=== PATIENT | female | born 1930 | race Caucasian/White ===

== ENCOUNTER 2016-10-27 12:10 | Inpatient (IN) ==
[2016-10-27] MEDS ORDERED: ZOFRAN IV ONE (12:40)
[2016-10-27] MEDS ORDERED: MORPHINE IV ONE (12:40)
[2016-10-27 12:57] LABS: MANUAL DIFF NEEDED? NO
[2016-10-27 13:04] LABS: BASO% 0.3 % (0.0-0.8); EOS% 0.7 % (0.0-10.0); HEMATOCRIT 35.1 % (37.0-47.0); HEMOGLOBIN 11.3 g/dL (12.0-16.0); IMM GRAN# 0.04 X1000 (0.0-0.04); IMM GRAN% 0.3 % (0.0-0.5); LYMPH# 1.79 X1000 (1.2-3.4); LYMPH% 12.5 % (20.5-51.1); MCH 28.7 PG (27-31); MCHC 32.2 g/dL (33-37); MCV 89.1 FL (81-99); MONO% 6.3 % (1.7-9.3); MPV 9.2 FL (7.4-10.4); NEUT% 79.9 % (42.2-75.2); PLT 290 X1000 (130-400); RBC 3.94 XMIL (4.2-5.4)
[2016-10-27 13:16] LABS: INR 1.05; PROTIME 11.1 Seconds (9.2-11.7)
[2016-10-27 13:17] LABS: AGAP 11; ALBUMIN 4.1 g/dL (3.5-5.0); ALKALINE PHOSPHATASE 65 U/L (32-104); BUN 10 mg/dL (8-22); CHLORIDE 96 mmol/L (98-107); COSMO 266; GOT 13 U/L (10-30); GPT 6 U/L (10-36); SODIUM 133 mmol/L (136-145); TCO2 26 mmol/L (25-35); TOTAL BILIRUBIN 0.38 mg/dL (0.20-1.00); TOTAL PROTEIN 6.9 g/dL (6.3-8.3)
[2016-10-27] MEDS: NS 1,000 ML IV SCH ×2 (13:20→21:51)
[2016-10-27] MEDS ORDERED: DIPHTHERIA/TETANUS ADULT IM ONE (13:33)
[2016-10-27] MEDS ORDERED: KEFZOL 1 GM/D5W 1 GM/50 ML IVPB IV ONE (13:33)
--- NOTE | 2016-10-27 14:19 | Diag Imaging Result Doc PS360 ---
EXAM: LOWER LEG-RIGHT INDICATION: poss open fx TECHNIQUE: 4 views COMPARISON: None. FINDINGS: There has been a prior right knee arthroplasty. The arthroplasty hardware is in the expected position. There are acute fractures involving the distal tibia and fibula. Please see separate right ankle radiograph report for further details, which was performed at the same time. No other discrete fracture is appreciated. There is soft tissue edema surrounding the ankle. IMPRESSION: Fractures of the distal tibia and fibula. Please see separate ankle radiograph report for full details. Electronically signed by Christiano Gonzales 10/27/2016 2:17 PM
--- NOTE | 2016-10-27 14:33 | Diag Imaging Result Doc PS360 ---
EXAM: ANKLE COMPLETE RIGHT INDICATION: pre-op TECHNIQUE: 3 views COMPARISON: None. FINDINGS: There is a fracture involving the distal shaft of the fibula with significant anterior and medial apex angulation. There is also a fracture of the lateral corner of the distal tibia. There is significant widening of the ankle mortise medially indicating ligamentous disruption. There is extensive soft tissue edema around the ankle. IMPRESSION: Fractures of the distal tibia and fibula as described with significant widening of the ankle mortise medially suggesting ligamentous injury. Electronically signed by Christiano Gonzales 10/27/2016 2:31 PM
[2016-10-27] MEDS ORDERED: TYLENOL PO PRN (14:47)
[2016-10-27] MEDS ORDERED: MORPHINE IV PRN ×2 (14:47→14:57)
[2016-10-27] MEDS ORDERED: NS 1,000 ML IV SCH (14:47)
[2016-10-27] MEDS ORDERED: ZOFRAN IV PRN ×2 (14:47→19:30)
--- NOTE | 2016-10-27 14:51 | Diag Imaging Result Doc PS360 ---
EXAM: CHEST-2 VIEWS INDICATION: FALL TECHNIQUE: 2 views COMPARISON: No prior chest radiograph is available for comparison. FINDINGS: Inspiration is suboptimal. There is a calcified granuloma at the right lung base. The lungs are grossly clear, otherwise. There is no discrete pleural fluid collection or pneumothorax. The cardiomediastinal silhouette and central vasculature are grossly unremarkable. There is multilevel thoracic spine spondylosis. IMPRESSION: No evidence of acute pathology by plain radiograph. Electronically signed by Christiano Gonzales 10/27/2016 2:48 PM
[2016-10-27] MEDS ORDERED: HUMALOG SUBQ ONE (14:52)
[2016-10-27] MEDS ORDERED: KEFZOL 1 GM/D5W 1 GM/50 ML IVPB ONE (15:56)
[2016-10-27] MEDS ORDERED: DIPRIVAN 1% ONE (18:34)
[2016-10-27] MEDS ORDERED: FENTANYL ONE (18:35)
--- NOTE | 2016-10-27 18:58 | OPERATIVE NOTE ---
PROCEDURE DATE: 10/27/2016 PREOPERATIVE DIAGNOSES: 1. Right grade 3A open ankle fracture dislocation. 2. Right lateral malleolus fracture. 3. Right deltoid tear. POSTOPERATIVE DIAGNOSES: 1. Right grade 3A open ankle fracture dislocation. 2. Right lateral malleolus fracture. 3. Right deltoid tear. PROCEDURES: 1. Right irrigation and debridement of the ankle. 2. Right distal fibula open reduction internal fixation. 3. Right deltoid repair. 4. Right debridement articular cartilage. SURGEON: Dr. Juve Smith. [employer]ES: [employer]. ANESTHESIA: General with LMA. TOURNIQUET TIME: Was around 90 minutes. IMPLANTS: Synthes 1/3 tubular plate and screws and [employer] Juggernauts. DISPOSITION: To PACU, hemodynamically stable. INDICATION FOR PROCEDURE: Ms. Marian Arevalo, an 86-year-old female, who was mopping her kitchen around 11 a.m. this morning. Unfortunately suffered a fall and sustained an open ankle fracture. She was brought to the emergency department. Ancef was given in the emergency department. She was then taken up to the OR Holding. When I examined her there she had open ankle fracture. I discussed with her and her family about irrigation, debridement and open reduction internal fixation. I went over with them the procedure, risks, benefits, potential complications. Risks include, but are not limited to, infection, wound healing problems, damage to nerves, arteries, veins, numbness, malunion, nonunion, hardware related issues, continued pain, DVT and anesthesia related risks. After discussing these with the patient, she expressed understanding and wished to proceed. DESCRIPTION OF PROCEDURE: Ms. Arevalo was identified in the preop holding area. Right ankle was marked as the correct surgical site. She was then wheeled to the operating room, kept supine on her own bed. She was induced under general anesthesia. LMA was placed. Tourniquet was placed to the right thigh. She was then moved to the OR table, all bony prominences well padded. Right lower extremity then prepped with Betadine, Betadine solution and draped in normal sterile fashion. Surgical pause was performed. We identified the correct patient, the correct side, and the correct procedure. Preop antibiotics were given which was another g of IV Ancef. She had already had 1 g in the ER and started with debridement. I did not see any foreign bodies in the ankle at all. You could see the entire tibial plafond and you could see the talar dome as well. She did scuff up a good portion of the talar dome and I debrided some of the loose cartilage that was there. She did have a small fracture off the posterior aspect of the tibia that seemed to be pretty small. I then irrigated everything copiously with normal saline until everything looked very nice and clean. I did not see any debris at all in the joint or through the wound. I then reduced the ankle and we went lateral. Made a longitudinal incision over the distal fibula. Dissection was carried down to the fracture site. Easily identified the fracture site. Irrigated it very well with normal saline. Also I then used a bony reduction clamp. Got my reduction. Put a lag screw in, 3.5 and then used a 1/3 tubular plate and screws, 3 screws distally and 3 screws proximally and had a good length and good stability there. I then came back medially. I put two juggernauts in the medial malleolus. It looked like she had avulsed off the deltoid right off of the medial malleolus. The PT tendon was inspected which showed it was intact. I then repaired the deltoid back to the medial malleolus with those 2 suture anchors and had very good fixation there. I then used a lot of 0 Vicryl and repaired a lot of the tissue and the capsule around that area, coming a little bit anteriorly at the anterior capsule and then also some to the periosteum as it had been ripped up to the deltoid. So felt I had a really good repair medially. After we did our deltoid repair I then got x-rays and everything looked well reduced, even that posterior malleolar piece and then I did external rotation stress test and she did not open up the medial clear screws or the tib/fib space. At this point, we then closed the lateral incision with 0 Vicryl for the deep layer over the plate, 2-0 Vicryl for the subcutaneous and nylon on the skin. The traumatic laceration I did close with a few 2-0 Vicryl to pull the skin together and then nylon. She also had 2 other lacerations a little more superior on the leg, 1 straight medial and 1 more anteriorly. I irrigated those out copiously with normal saline and then closed those with nylon. As everything was closed well tourniquet was let down at 90 minutes. The patient good cap refill return to the toes. Adaptic 4x4s, ABD, soft roll and posterior splint was applied. The patient was then moved to her own bed and taken to the PACU in stable condition. Postoperatively, patient will be nonweightbearing right lower extremity. She will be admitted to the hospital. She received IV antibiotics and then I will see her in the morning. cc: MD Marty Hurtado MD
--- NOTE | 2016-10-27 19:14 | HISTORY AND PHYSICAL ---
PRIMARY CARE PHYSICIAN: Marty Rene MD. CHIEF COMPLAINT: Right ankle pain. HISTORY OF PRESENT ILLNESS: This is an 86-year-old, white female with past medical history significant for anemia, atrial fibrillation, constipation, type 2 diabetes, reflux disease, hypertension, hyperlipidemia, mild cognitive impairment, osteoarthritis, osteopenia, psoriasis, and vitamin B12 deficiency presents for evaluation of above-mentioned symptoms. Current history of present illness began in late morning. The patient states that she was mopping her restroom at home. She was not wearing shoes. Unfortunately, she slipped into the sink and suffered a significant right ankle injury. Patient noted immediate bleeding from this site. The patient was able to push herself along the floor to the telephone. She contacted her family for assistance. EMS was called. The patient was transported to the emergency department for further evaluation and management. The patient was noted to have fractures of the distal tibia and fibula as well as significant widening of the ankle mortise medially suggesting ligamentous injury. The patient will be admitted to the hospital for full evaluation and management of this condition. Of note, patient denies syncopal episode associated. She denies fevers, chills, nausea, vomiting, dysuria, hematuria, pyuria, or recent change in bowel movements. PAST MEDICAL HISTORY: 1. 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 2. Anemia. 3. Atrial fibrillation. 4. Constipation. 5. Iron-deficiency anemia. 6. Type 2 diabetes. 7. Reflux disease. 8. Hypertension. 9. Hyperlipidemia. 10. Menorrhagia status post JIGNESH/BSO in 1979. 11. Mild cognitive impairment. 12. Nephrolithiasis diagnosed in 1977 without recurrence to date. 13. Osteoarthritis. 14. Osteopenia. 15. Psoriasis. 16. Vitamin B12 deficiency. CURRENT MEDICATIONS: 1. Aspirin 81 mg daily. 2. Calcium plus vitamin D daily. 3. CoQ10 100 mg daily. 4. Diltiazem CD 300 mg daily. 5. Fish Oil 1000 mg daily. 6. Losartan/hydrochlorothiazide 100/12.5 daily. 7. Metamucil powder daily. 8. Metformin ER 500 mg twice daily. 9. Omeprazole 20 mg daily. 10. Pravastatin 40 mg at bedtime. 11. Vitamin B12 1000 mcg daily. 12. Eliquis 2.5 mg twice daily. ALLERGIES: Patient answered no known drug allergies. SOCIAL HISTORY: Patient denies tobacco, alcohol or illicit drug use. She is retired from [employer]. She enjoys yard work. She exercises intermittently. FAMILY HISTORY: Patient's father passed at age 85 secondary to complications of congestive heart failure. Patient's mother passed at age 23 secondary to complications of tuberculosis. REVIEW OF SYSTEMS: A 12 point review of systems was performed. Pertinent positives and negatives are noted in history present illness. PHYSICAL EXAMINATION: VITAL SIGNS: Temperature 98.3 degrees, heart rate 96, respirations 16, blood pressure 163/79. GENERAL: Mild distress secondary to right ankle pain. HEENT: Normocephalic, atraumatic. Pupils equal, round, reactive to light. Extraocular muscles intact. Sclerae anicteric. Toast conjunctivae. Oropharynx and nasopharynx clear without exudate. NECK: Supple. No lymphadenopathy. No thyromegaly. No bruits auscultated. CARDIOVASCULAR: Regular rate and rhythm. No significant murmurs, rubs, or gallops. PULMONARY: Clear to auscultation bilaterally. ABDOMEN: Soft, nontender, nondistended. Positive bowel sounds. EXTREMITIES: Moves the left lower extremity well. The patient has a disfiguration of the right ankle with open fracture medially. NEUROLOGIC EXAMINATION: Cranial nerves 2 through 12 grossly intact. Motor and sensory grossly intact. PSYCHOLOGIC EXAMINATION: Appropriate. LABORATORY DATA: White blood cell count 14.31, hemoglobin 11.3, hematocrit 35.1, platelet count 290,000. PT is 11.1, INR is 1.05, PTT is 25.2. Sodium 133, potassium 4.0, chloride 96, bicarbonate 26, BUN 10, creatinine 0.7, glucose 102, calcium 9.0, total bilirubin 0.38, total protein 6.9, albumin 4.1, alkaline phosphate 65, AST 13, ALT 6. Ankle x-ray is as noted above. ASSESSMENT AND PLAN: An 86-year-old, white female with past medical history as noted presents for evaluation of right ankle pain. Patient has an open fracture with significant disfiguration. X- ray confirms a tibia and fibula fracture. In addition, patient has significant ligamentous injury and dislocation. Patient will be taken immediately for surgical intervention. 1. Admit to [address] [place] [address]. 2. Open right tib-fib fracture with dislocation - As above, Dr. Smith has been consulted. Patient will be taken immediately for surgery. We will remain aware that patient is on anticoagulation. We will defer treatment and antibiotic regimen to his discretion. We will plan to consult Dr. Roberts once available. We will continue pain medications as needed. 3. Leukocytosis - I suspect this is reactive. She has no evidence of infection at the present time. We will follow this. 4. Atrial fibrillation - We will continue patient's home medications. She is rate controlled. 5. Anticoagulation - Patient's Eliquis has been held. We will plan to resume this once able. 6. Hypertension - We will continue patient on diltiazem therapy. For now, we will hold losartan and hydrochlorothiazide. 7. Diabetes - We will hold patient's metformin for now. We will start sliding scale insulin. We will resume this once able. 8. Hyperlipidemia - We will continue patient on pravastatin therapy. 9. Constipation - Patient has longstanding disease. In the setting of narcotic pain intervention, we will need to monitor this closely as an inpatient. We will continue Metamucil therapy. 10. Fluid, electrolytes, nutrition. We will monitor electrolytes. Normal saline at KVO. NPO for now. 11. Prophylaxis - Patient will resume Eliquis once able. cc: Marty Rene MD
[2016-10-27] MEDS ORDERED: PERICOLACE PO PRN (19:30)
[2016-10-27] MEDS: PRAVACHOL PO SCH (21:52)
[2016-10-27] MEDS: MORPHINE IV PRN (22:02)
[2016-10-28] MEDS: KEFZOL 1 GM/D5W 1 GM/50 ML IVPB IV SCH ×4 (01:02→23:31)
[2016-10-28 06:33] LABS: MANUAL DIFF NEEDED? NO
[2016-10-28 06:46] LABS: BASO% 0.3 % (0.0-0.8); EOS# 0.07 X1000 (0.0-0.7); EOS% 0.7 % (0.0-10.0); HEMATOCRIT 28.2 % (37.0-47.0); HEMOGLOBIN 8.8 g/dL (12.0-16.0); LYMPH# 1.73 X1000 (1.2-3.4); LYMPH% 18.4 % (20.5-51.1); MCHC 31.2 g/dL (33-37); MCV 89.8 FL (81-99); MONO# 0.79 X1000 (0.11-0.59); MONO% 8.4 % (1.7-9.3); MPV 9.4 FL (7.4-10.4); NEUT% 72.2 % (42.2-75.2); PLT 247 X1000 (130-400); RBC 3.14 XMIL (4.2-5.4)
[2016-10-28] MEDS: NS 1,000 ML IV SCH (06:48)
[2016-10-28 07:03] LABS: AGAP 11; ALBUMIN 3.4 g/dL (3.5-5.0); ALKALINE PHOSPHATASE 53 U/L (32-104); BUN 7 mg/dL (8-22); CHLORIDE 98 mmol/L (98-107); COSMO 271; GOT 13 U/L (10-30); GPT 5 U/L (10-36); POTASSIUM 3.9 mmol/L (3.5-5.1); SODIUM 136 mmol/L (136-145); TCO2 27 mmol/L (25-35); TOTAL BILIRUBIN 0.47 mg/dL (0.20-1.00); TOTAL PROTEIN 5.6 g/dL (6.3-8.3)
[2016-10-28] MEDS: VITAMIN B-12 PO SCH (08:19)
[2016-10-28] MEDS: CARDIZEM CD PO SCH (08:19)
[2016-10-28] MEDS: PRILOSEC PO SCH (08:20)
[2016-10-28] MEDS: PERIDEX MT SCH ×2 (08:20→21:36)
[2016-10-28] MEDS: ELIQUIS PO SCH ×2 (08:25→21:36)
[2016-10-28] MEDS ORDERED: METAMUCIL POWDER PACKET PO SCH (09:00)
[2016-10-28] MEDS: MORPHINE IV PRN (09:57)
--- NOTE | 2016-10-28 10:33 | PROGRESS NOTE ---
DATE: 10/28/2016 PROCEDURE: Date of surgery 10/27/2016, status post right grade 3A open ankle fracture irrigation and debridement, open reduction and internal fixation of the fibula, and deltoid repair. SUBJECTIVE: Ms. Arevalo is lying in bed this morning, eating breakfast. Pain seems well controlled. OBJECTIVE: Right lower extremity examination: Splint is clean, dry, and intact. She has good sensation to light touch to the toes. Good capillary refill to the toes. ASSESSMENT: Status post right grade 3A open ankle fracture irrigation and debridement, open reduction and internal fixation of the fibula, and deltoid repair. PLAN: I am going to keep Ms. Arevalo nonweightbearing for about 7 weeks. She is going to remain on IV antibiotics over the weekend for about a 48-hour period postoperatively, and then will plan on getting her to rehab probably Sunday or Sunday this next week. cc: MD Marty Hurtado MD
--- NOTE | 2016-10-28 11:15 | PROGRESS NOTE ---
DATE: 10/28/2016 SUBJECTIVE: This morning, overall, the patient states she is doing reasonably well. She is postoperative day #1 surgical intervention for an open right tibia-fibula fracture with ankle dislocation. The patient tolerated the procedure very well. This far, postoperative pain has been controlled. She denies fevers, chills, nausea, vomiting, shortness of breath, or chest discomfort. OBJECTIVE: Vital signs: T-max 98.0, heart rate 67-85, respirations 12-16, blood pressure 136 to 142 over 70 to 74. General: Well nourished, well developed, in no acute distress. Cardiovascular: Irregularly irregular. No significant murmurs, rubs, or gallops. Pulmonary: Clear to auscultation bilaterally. Abdomen: Soft, nontender, nondistended, positive bowel sounds. Extremities: Moves all extremities well. No significant clubbing, cyanosis, or edema to the left. Right lower extremity is dressed. Dermatologic evaluation: No evidence of rash. LABORATORY DATA: White blood cell count 9.40, hemoglobin 8.8, hematocrit 28.2, platelet count is 247,000. Sodium 136, potassium 3.9, chloride 98, bicarb 27, BUN 7, creatinine 0.6, glucose 115, calcium 8.0. Total bilirubin 0.47, total protein 5.6, albumin 3.4, alkaline phosphatase 53, AST 13, ALT 5. ASSESSMENT AND PLAN: 1. Open right tibia-fibula fracture with ankle dislocation--the patient is postoperative day #1. We will defer physical therapy and postoperative antibiotics to Dr. Smith. At the present time, the patient's pain is controlled. Physical therapy will be initiated. 2. Leukocytosis--I suspect this was reactive yesterday. White blood count today is within normal limits. We will remain aware. 3. Atrial fibrillation--the patient is rate controlled. The patient's Eliquis was resumed today. We will follow this. 4. Anticoagulation--as above. The patient's Eliquis has been resumed. 5. Hypertension--the patient's diltiazem has been continued. For now, we will continue to hold losartan and hydrochlorothiazide. As patient's blood pressure trends up, we will plan to reinitiate. 6. Diabetes--the patient's metformin has been held for now. We will continue sliding scale insulin. 7. Hyperlipidemia--we will continue patient on pravastatin therapy. 8. Constipation--we will continue patient on routine Metamucil therapy. Senna-S has been added twice daily as needed. I have encouraged patient to monitor for symptoms, as she is currently taking narcotic intervention. 9. Disposition--at this point, the patient continues to require correction care here in the hospital setting. We will plan discharge home or to rehab once appropriate. cc: Marty Rene MD
[2016-10-28] MEDS: OXY IR PO PRN (19:42)
--- NOTE | 2016-10-28 20:29 | CONSULTATION ---
DATE OF CONSULTATION: 10/27/2016 CHIEF COMPLAINT: Right ankle pain. HISTORY OF PRESENT ILLNESS: This is an 86-year-old female with a past medical history for anemia, atrial fibrillation, type 2 diabetes, hypertension, hyperlipidemia, osteoarthritis, osteopenia and psoriasis. Ms. Arevalo states that around 11 a.m. on 10/27/2016 she fell while mopping and injured her right ankle. She noted immediate bleeding from the site and she immediately contacted her family for assistance. She was transported to the emergency department by EMS. On arrival to the ER she is noted to have fractures of the distal tibia and fibula as well as significant widening of the ankle mortise medially suggesting ligament injury. She denies syncope, headache, fever, chills, nausea or vomiting. We have been asked to see her in consultation for surgical repair of the right ankle. PAST MEDICAL HISTORY: 1. Atrial fibrillation. 2. Anemia. 3. Type 2 diabetes. 4. Hypertension. 5. Hyperlipidemia. 6. Osteoarthritis. 7. Osteopenia. 8. Psoriasis. CURRENT MEDICATIONS: 1. Aspirin 81 mg daily. 2. Calcium plus vitamin D daily. 3. Two Q 10 daily. 4. Cardizem CD 300 daily. 5. Fish oil. 6. Losartan. 7. Metamucil. 8. Metformin ER 500 twice daily. 9. Prilosec 20 mg daily. 10. Pravastatin 40 mg at bedtime. 11. Eliquis 2.5 mg twice daily. ALLERGIES: No known drug allergies. SOCIAL HISTORY: Patient lives at home alone. Denies tobacco, alcohol or illicit drug use. REVIEW OF SYSTEMS: A 12 point review of system was performed. Pertinent positives and negatives have been noted in the history of present illness. PHYSICAL EXAM: Vital signs: Current temperature is 98.3 degrees, her heart rate is 92, respirations are 16, her blood pressure is 151/91 and her saturation is 92% on room air. General: She is in no acute distress and states her pain is well controlled. She is resting in the bed with the right ankle covered in a sterile towel. HEENT: Normocephalic, atraumatic. Pupils are equal, round, reactive to light. Neck: No lymphadenopathy. Cardiovascular: She has a regular rate and rhythm. No murmurs, rubs, gallops or clicks noted. Pulmonary: Clear to auscultation. Respirations are even and unlabored. Abdomen: Soft, nontender, nondistended. Positive bowel sounds. Extremities: She is able to move all the extremities including the right toes. Attempting to move the right ankle does cause her some pain. She does have a open fracture medially with the tibia clearly visible. She also has several lacerations that are bleeding proximally to the open fracture. She does have good sensation to the foot as well as a good pedal pulse. She has good capillary refill. IMAGING: A 3-view ankle x-ray does show a fracture involving the distal shaft of the fibula with significant anterior and medial apex angulation. There is also fracture of the lateral corner of the distal tibia and again there is widening of the ankle mortise medially. ASSESSMENT AND PLAN: 1. Right grade 3 open ankle fracture-dislocation. 2. Right lateral malleolus fracture. 3. Possible Right deltoid tear. PLAN: We plan to get Ms. Arevalo to the operating room as soon as possible for a right irrigation and debridement of the ankle, right distal fibula open reduction, internal fixation, right deltoid repair and right debridement of articular cartilage. Dr. Smith did review with her and the family about irrigation, debridement and open reduction, internal fixation. He discussed with them the procedure risks, benefits, potential complications. Risks include but are not limited to infection, wound healing problems, damage to nerves, arteries, pain, numbness, malunion, nonunion, hardware related issues and continued pain, DVT and anesthesia related risks. After discussing these with the patient and family, all expressed understanding and wished to proceed. Dictated by CHRISTINA Block for Juve Smith MD cc: CHRISTINA Block MD Scott A. Matthews, MD [facility] SYSTEMPraveen
[2016-10-28] MEDS: PRAVACHOL PO SCH (21:36)
[2016-10-29] MEDS: OXY IR PO PRN ×3 (02:23→23:24)
[2016-10-29] MEDS: NS 1,000 ML IV SCH (02:25)
[2016-10-29 06:10] LABS: MANUAL DIFF NEEDED? NO
[2016-10-29 06:57] LABS: BASO% 0.3 % (0.0-0.8); EOS# 0.12 X1000 (0.0-0.7); EOS% 1.3 % (0.0-10.0); LYMPH# 2.13 X1000 (1.2-3.4); LYMPH% 23.7 % (20.5-51.1); MCH 28.1 PG (27-31); MCHC 30.8 g/dL (33-37); MCV 91.2 FL (81-99); MONO# 1.01 X1000 (0.11-0.59); MONO% 11.2 % (1.7-9.3); MPV 9.4 FL (7.4-10.4); NEUT% 63.5 % (42.2-75.2); PLT 218 X1000 (130-400); RBC 2.85 XMIL (4.2-5.4)
[2016-10-29 07:22] LABS: AGAP 10; ALBUMIN 2.8 g/dL (3.5-5.0); ALKALINE PHOSPHATASE 45 U/L (32-104); BUN 5 mg/dL (8-22); CHLORIDE 104 mmol/L (98-107); COSMO 277; GOT 10 U/L (10-30); GPT < 5 U/L (10-36); POTASSIUM 3.5 mmol/L (3.5-5.1); SODIUM 140 mmol/L (136-145); TCO2 26 mmol/L (25-35); TOTAL BILIRUBIN 0.33 mg/dL (0.20-1.00); TOTAL PROTEIN 5.1 g/dL (6.3-8.3)
[2016-10-29] MEDS: PRILOSEC PO SCH (08:02)
[2016-10-29] MEDS: VITAMIN B-12 PO SCH (08:03)
[2016-10-29] MEDS: ELIQUIS PO SCH ×2 (08:03→20:46)
[2016-10-29] MEDS: PERIDEX MT SCH ×2 (08:03→20:46)
[2016-10-29] MEDS: CARDIZEM CD PO SCH (08:03)
[2016-10-29] MEDS: METAMUCIL POWDER PACKET PO SCH (08:04)
[2016-10-29] MEDS: KEFZOL 1 GM/D5W 1 GM/50 ML IVPB IV SCH (08:04)
--- NOTE | 2016-10-29 08:10 | PROGRESS NOTE ---
DATE: 10/29/2016 SUBJECTIVE: Ms. Arevaol is resting in bed well this morning. Pain seems well controlled. OBJECTIVE: Right Lower Extremity Examination: Splint is clean, dry, and intact. She has good capillary refill to all the toes. She has good dorsiflexion and plantarflexion of all the toes. ASSESSMENT: Status post open reduction and internal fixation of right ankle with irrigation and debridement of a grade 3A open ankle fracture. PLAN: I think Ms. Arevalo is still doing well. We will work to getting her toward rehab early this next week and we will continue to monitor her for any signs of infection. cc: MD Marty Hurtado MD
--- NOTE | 2016-10-29 17:10 | PROGRESS NOTE ---
DATE: 10/29/2016 SUBJECTIVE: This morning, patient states she continues to slowly improve. She is postoperative day #2 surgical intervention for an open right tib-fib fracture with ankle dislocation. She continues to have considerable pain, but overall is doing well. Her p.o. intake is adequate. She denies fevers, chills, nausea, vomiting, shortness of breath, or chest discomfort. OBJECTIVE: T-max 98.5 degrees, heart rate 71-83, respirations 12-20, blood pressure 107-131/54- 61.General: Well nourished, well developed, in no acute distress. Cardiovascular: Irregular irregular. No significant murmurs, rubs or gallops. Pulmonary: Clear to auscultation anteriorly. Abdomen: Soft, nontender, nondistended. Positive bowel sounds. Extremities: No significant clubbing or cyanosis to the left. Right lower extremity is dressed. Dermatologic: Evaluation revealed no evidence of rash. LABORATORY DATA: White blood cell count 8.99, hemoglobin 8.0, hematocrit 26.0, platelet count is 218,000. Sodium 140, potassium 3.5, chloride 104, bicarb 26, BUN 5, creatinine 0.5, glucose 112, calcium 8.0, total bilirubin 0.33, total protein 5.1, albumin 2.8, alkaline phosphatase 45, AST 10, ALT less than 5. ASSESSMENT AND PLAN: 1. Open right tibia-fibula fracture with ankle dislocation - Patient is postoperative day #2. We will initiate physical therapy and encourage patient up in chair today. Postoperative antibiotics will be determined by Dr. Smith. We will follow the patient's clinical course closely. Patient likely will require rehabilitation at discharge. 2. Leukocytosis - I suspect this was reactive. Patient's white blood cell count has returned to within normal limits. We will remain aware. 3. Atrial fibrillation - Patient is rate controlled and anticoagulated with Eliquis therapy. 4. Hypertension - Patient's diltiazem has been continued. Her losartan and hydrochlorothiazide have been held for now. With time, she likely will need to reinitiate therapy. We will follow this. 5. Diabetes - Patient's metformin has been held for now. For now, we will continue sliding scale insulin. 6. Hyperlipidemia - We will continue patient on pravastatin therapy. 7. Constipation - The patient is being treated with Metamucil and Senna S as needed. We will follow this, especially in the setting of narcotic intervention. 8. Anemia - Patient's hemoglobin and hematocrit has decreased considerably since the hospitalization. This likely is secondary to blood loss associated with her fracture. We will continue to follow this. 9. Disposition - At this point, patient continues to require [facility] care in the hospital setting. We will plan to discharge to rehabilitation once appropriate. cc: Marty Rene MD
[2016-10-29] MEDS: PRAVACHOL PO SCH (20:46)
[2016-10-30 06:19] LABS: MANUAL DIFF NEEDED? NO
[2016-10-30 06:29] LABS: HEMOGLOBIN 8.2 g/dL (12.0-16.0); MCH 28.1 PG (27-31); RBC 2.92 XMIL (4.2-5.4)
[2016-10-30 06:55] LABS: BASO% 0.5 % (0.0-0.8); EOS# 0.26 X1000 (0.0-0.7); EOS% 2.8 % (0.0-10.0); HEMATOCRIT 26.9 % (37.0-47.0); IMM GRAN# 0.03 X1000 (0.0-0.04); IMM GRAN% 0.3 % (0.0-0.5); LYMPH# 2.35 X1000 (1.2-3.4); LYMPH% 25.7 % (20.5-51.1); MCHC 30.5 g/dL (33-37); MCV 92.1 FL (81-99); MONO% 9.9 % (1.7-9.3); MPV 9.3 FL (7.4-10.4); NEUT% 60.8 % (42.2-75.2); PLT 232 X1000 (130-400)
[2016-10-30] MEDS ORDERED: MILK OF MAGNESIA PO PRN (08:30)
[2016-10-30] MEDS: PRILOSEC PO SCH (09:09)
[2016-10-30] MEDS: VITAMIN B-12 PO SCH (09:09)
[2016-10-30] MEDS: CARDIZEM CD PO SCH (09:10)
[2016-10-30] MEDS: ELIQUIS PO SCH ×2 (09:10→20:16)
[2016-10-30] MEDS: PERIDEX MT SCH ×3 (09:10→20:19)
[2016-10-30] MEDS: METAMUCIL POWDER PACKET PO SCH (09:10)
[2016-10-30] MEDS ORDERED: ZOFRAN ONE (09:22)
[2016-10-30] MEDS ORDERED: OFIRMEV 1000 MG/ISOTONIC SOLN 1,000 MG/100 ML BOTTLE ONE (09:22)
[2016-10-30] MEDS ORDERED: XYLOCAINE-MPF 2% ONE (09:22)
[2016-10-30] MEDS ORDERED: LR 1,000 ML ONE (09:22)
--- NOTE | 2016-10-30 11:44 | PROGRESS NOTE ---
DATE: 10/30/2016 SUBJECTIVE: Ms. Arevalo is sitting in bedside chair and overall is doing well. OBJECTIVE: Right lower extremity exam, dressing is clean, dry, and intact. Took a little bit of the dressing apart just to look at the skin around the foot and did not see any erythema. She is able to move the toes well. ASSESSMENT: Status post irrigation and debridement for open 3A ankle fracture with open reduction internal fixation fibula and deltoid repair. PLAN: I am going to send Ms. Arevalo home on Keflex for 7 days since it was a grade 3A open injury. I will see her in clinic this Sunday and will take everything down and take a look at her wounds and all. She will be nonweightbearing right lower extremity. cc: MD Marty Hurtado MD
[2016-10-30] MEDS: OXY IR PO PRN (20:16)
[2016-10-30] MEDS: PRAVACHOL PO SCH (20:17)
--- NOTE | 2016-10-31 04:34 | PROGRESS NOTE ---
DATE: 10/30/2016 SUBJECTIVE: Overall, the patient continues to very slowly improve. She is postoperative day #3, surgical intervention, for an open right tib-fib fracture, with ankle dislocation. The patient's pain is present, but reasonably controlled with her current regimen. She is working with Physical Therapy. She denies fevers, chills, nausea, vomiting, shortness of breath, or chest discomfort. Her p.o. intake is marginal. OBJECTIVE: Vital Signs: T-max 98.5 degrees, heart rate 65-69, respirations 12-14, blood pressure 111 to 127 over 61 to 66. General: Well-nourished, well-developed, in no acute distress. Cardiovascular: Irregularly irregular. No significant murmurs, rubs, or gallops. Pulmonary: Clear to auscultation anteriorly. Abdomen: Soft, nontender, nondistended. Positive bowel sounds. Extremities: Moves left lower extremity well. Patient's right lower extremity is post surgically dressed. Dermatologic: Evaluation reveals no evidence of rash. LABORATORY DATA: White blood cell count 9.13, hemoglobin 8.2, hematocrit 26.9, platelet count 232,000. ASSESSMENT AND PLAN: 1. Open right tib-fib fracture, with ankle dislocation. The patient is postoperative day #3. Physical therapy has been initiated. Pain is reasonably controlled. We will plan discharge to rehabilitation once able. 2. Leukocytosis. Patient has achieved a resolution. This likely was reactive in etiology. 3. Atrial fibrillation. Patient is rate controlled and anticoagulated with Eliquis therapy. 4. Hypertension. Patient's hydrochlorothiazide and losartan have been held. Diltiazem has been continued. Blood pressure is reasonably controlled at present time. 5. Diabetes. The patient is being treated with sliding scale insulin. We will resume metformin therapy in the a.m. 6. Hyperlipidemia. We will continue patient on pravastatin therapy. 7. Constipation. The patient is currently being treated with Metamucil and Senna S as needed. We will add as needed milk of magnesia. 8. Anemia. Patient's hemoglobin and hematocrit remain stable. We will remain aware. 9. Disposition. At this point, patient continues to require [facility] care in the hospital setting. We will plan discharge home once appropriate. cc: Marty Rene MD
[2016-10-31 05:40] LABS: MANUAL DIFF NEEDED? NO
[2016-10-31 06:58] LABS: BASO% 0.6 % (0.0-0.8); EOS# 0.24 X1000 (0.0-0.7); EOS% 2.7 % (0.0-10.0); HEMATOCRIT 26.6 % (37.0-47.0); HEMOGLOBIN 8.1 g/dL (12.0-16.0); LYMPH% 22.9 % (20.5-51.1); MCH 27.8 PG (27-31); MCHC 30.5 g/dL (33-37); MCV 91.4 FL (81-99); MONO# 0.83 X1000 (0.11-0.59); MONO% 9.5 % (1.7-9.3); MPV 9.5 FL (7.4-10.4); NEUT% 64.3 % (42.2-75.2); PLT 257 X1000 (130-400); RBC 2.91 XMIL (4.2-5.4)
[2016-10-31] MEDS ORDERED: DULCOLAX PR ONE (07:58)
--- NOTE | 2016-10-31 09:04 | PROGRESS NOTE ---
DATE: 10/31/2016 SUBJECTIVE DATA: Ms. Arevalo is sitting in the bed in no acute distress, and she denies any pain at the present. OBJECTIVE DATA: Right lower extremity exam: The splint is clean, dry, and intact. She is able to move all of her toes well. She has good color and good cap refill, and again she states her pain is well controlled at this time. ASSESSMENT: Status post irrigation, debridement for an open 3A ankle fracture with open reduction and internal fixation of the fibula and deltoid repair. PLAN: We are okay with Ms. Arevalo's discharge when her rehab bed is available. We will continue her on Keflex at discharge since there was a grade 3A open injury. We will plan to follow up with her in clinic this Sunday. We will remove the splint and get a good look at everything, wounds and all. We will remain nonweightbearing. Dictated by CHRISTINA Block for Juve Smith MD cc: CHRISTINA Block MD Scott A. Matthews, MD MTDD
[2016-10-31] MEDS: ELIQUIS PO SCH ×2 (09:43→20:30)
[2016-10-31] MEDS: CARDIZEM CD PO SCH (09:43)
[2016-10-31] MEDS: VITAMIN B-12 PO SCH (09:43)
[2016-10-31] MEDS: PRILOSEC PO SCH (09:43)
[2016-10-31] MEDS: PERIDEX MT SCH ×2 (09:44→20:30)
[2016-10-31] MEDS: METAMUCIL POWDER PACKET PO SCH (09:44)
[2016-10-31] MEDS: GLUCOPHAGE PO SCH ×2 (09:44→17:45)
[2016-10-31] MEDS: OXY IR PO PRN (18:49)
--- NOTE | 2016-10-31 18:57 | PROGRESS NOTE ---
DATE: 10/31/2016 SUBJECTIVE: Overall, patient's condition continues to very slowly improve. She is postoperative day #4, a surgical intervention for an open right tibia-fibula fracture with ankle dislocation. Postoperatively, the patient has demonstrated a very slow improvement. She is working with physical therapy. Her ambulatory status is severely limited. Her p.o. intake is slowly improving. She is working with physical therapy. She denies fevers, chills, nausea, vomiting, shortness of breath, or chest discomfort. The patient did have a bowel movement this morning after a Dulcolax suppository. OBJECTIVE: Vital Signs: T-max 98.8, heart rate 67-74, respirations 12-14. Blood pressure 109 to 126 over 61 to 64. General: Well nourished, well developed, no acute distress. Cardiovascular: Irregularly irregular. No significant murmurs, rubs, or gallops. Pulmonary: Clear to auscultation anteriorly. Abdomen: Soft, nontender, nondistended. Positive bowel sounds. Extremities: Moves left lower extremity well without clubbing, cyanosis or edema. Right lower extremity has a postsurgical dressing. Dermatologic: Evaluation reveals no evidence of rash. LABORATORY DATA: White blood cell count 8.75, hemoglobin 8.1, hematocrit 26.6, platelet count is 257,000. ASSESSMENT AND PLAN: 1. Open right tibia-fibula fracture with ankle dislocation-patient is postoperative day #4. She is currently working with physical therapy. I appreciate Dr. Smith's consultation. We will plan discharge to rehabilitation once able. 2. Leukocytosis-patient has achieved resolution. This likely was secondary to a reactive nature in the setting of her acute fracture. 3. Atrial fibrillation-patient is rate controlled and anticoagulated with Eliquis therapy. 4. Hypertension-patient's hydrochlorothiazide and losartan have been held. For now, we will continue diltiazem alone. This is assisting with rate control. 5. Diabetes-The patient's metformin was initiated this morning. She is covered also with sliding scale insulin. 6. Hyperlipidemia-We will continue pravastatin therapy. 7. Constipation-As above, we have achieved improvement with Dulcolax suppository. 8. Anemia-Patient's hemoglobin and hematocrit are stable. We will remain aware. DISPOSITION: We will plan discharge to rehabilitation in the a.m. cc: Marty Rene MD
[2016-10-31] MEDS: PRAVACHOL PO SCH (20:30)
[2016-11-01 05:29] LABS: MANUAL DIFF NEEDED? NO
[2016-11-01 05:42] LABS: BASO% 0.8 % (0.0-0.8); EOS# 0.24 X1000 (0.0-0.7); EOS% 3.1 % (0.0-10.0); HEMATOCRIT 27.2 % (37.0-47.0); HEMOGLOBIN 8.4 g/dL (12.0-16.0); IMM GRAN# 0.02 X1000 (0.0-0.04); IMM GRAN% 0.3 % (0.0-0.5); LYMPH# 1.89 X1000 (1.2-3.4); LYMPH% 24.1 % (20.5-51.1); MCH 28.2 PG (27-31); MCHC 30.9 g/dL (33-37); MCV 91.3 FL (81-99); MONO# 0.67 X1000 (0.11-0.59); MONO% 8.6 % (1.7-9.3); MPV 9.4 FL (7.4-10.4); NEUT% 63.1 % (42.2-75.2); PLT 286 X1000 (130-400); RBC 2.98 XMIL (4.2-5.4)
[2016-11-01] MEDS: GLUCOPHAGE PO SCH (08:38)
[2016-11-01] MEDS: CARDIZEM CD PO SCH (08:38)
[2016-11-01] MEDS: VITAMIN B-12 PO SCH (08:38)
[2016-11-01] MEDS: ELIQUIS PO SCH (08:39)
[2016-11-01] MEDS: METAMUCIL POWDER PACKET PO SCH (08:39)
[2016-11-01] MEDS: PRILOSEC PO SCH (08:39)
[2016-11-01] MEDS: PERIDEX MT SCH (08:39)
[2016-11-01] MEDS: OXY IR PO PRN ×2 (08:40→14:33)
--- NOTE | 2016-11-01 10:26 | DISCHARGE SUMMARY ---
ADMISSION DATE: 10/27/2016 DISCHARGE DATE: 11/01/2016 ADMISSION DIAGNOSIS: Right ankle pain. DISCHARGE DIAGNOSES: 1. Open right tibia/fibular fracture with ankle dislocation. 2. Leukocytosis, resolved. 3. Atrial fibrillation, present on arrival. 4. Hypertension, present on arrival. 5. Diabetes, present on arrival. 6. Hyperlipidemia, present on arrival. 7. Constipation, present on arrival. 8. Anemia, stable. CONSULTATIONS: Dr. Smith was consulted with orthopedic surgery for further evaluation and management of open right ankle tib-fib fracture with dislocation. PROCEDURES: A right irrigation and debridement of the ankle, right distal fibula open reduction, internal fixation, right deltoid repair, and right debridement of articular cartilage was performed by Dr. Smith on 10/27/2016. HISTORY AND PHYSICAL EXAMINATION: See admit note. PHYSICAL EXAMINATION PRIOR TO DISCHARGE: Vital Signs: Temperature 97.6 degrees, heart rate 97, respirations 14, blood pressure is 136/75. General: Well nourished, well developed, in no acute distress. Cardiovascular: Irregularly irregular. No significant murmurs, rubs, or gallops. Pulmonary: Clear to auscultation bilaterally. Abdomen: Soft, nontender, nondistended. Positive bowel sounds. Extremities: Moves left lower extremity well without clubbing, cyanosis or edema. Right lower extremity has a post surgical dressing. Dermatologic: Evaluation reveals no evidence of rash. LABORATORY DATA: White blood cell count 7.83, hemoglobin 8.4, hematocrit 27.2, platelet count 286,000. HOSPITAL COURSE: The patient was admitted as per history and physical examination. Hospital course per condition is as follows: 1. Open right tib-fib fracture with ankle dislocation--as noted above, patient was immediately diagnosed and consultation with Dr. Smith was pursued. The patient was taken for surgical intervention. Patient tolerated this procedure very well. Postoperatively, patient has been treated with physical therapy. She has required intermittent pain medications. Overall, she is slowly improving. The patient is currently nonweightbearing as per Dr. Smith's instructions. We will plan rehabilitation and physical therapy. 2. Leukocytosis--upon admission, patient was noted to have a considerable leukocytosis. This likely was reactive in etiology. With time, this resolved. This will need to be followed as well. 3. Atrial fibrillation/anticoagulation--patient remained rate controlled while hospitalized. Eliquis was held for approximately 24 hours intraoperative/postoperatively. Her Eliquis has been resumed. She is tolerating this well. 4. Hypertension--upon admission, patient was being treated with diltiazem and losartan/hydrochlorothiazide. The patient's losartan/hydrochlorothiazide have been held while hospitalized. Her blood pressure has remained reasonably controlled. Patient will be discharged on diltiazem alone. Should blood pressure trend upwards, resuming losartan/hydrochlorothiazide may be appropriate. 5. Diabetes--the patient was treated with home dose metformin and sliding scale insulin while hospitalized. Her blood sugars have remained reasonably controlled. 6. Hyperlipidemia--patient was continued on pravastatin therapy while hospitalized. 7. Constipation--patient has chronic constipation. She has experienced an exacerbation while hospitalized associated with narcotic intervention. Patient will be discharged to rehabilitation with a cautious, but aggressive bowel regimen. 8. Anemia--while hospitalized, patient's hemoglobin and hematocrit decreased considerably, although not to transfusion level. This will need to be followed as an outpatient as well. DISCHARGE CONDITION: Good. DISPOSITION: Discharged to rehabilitation. MEDICATIONS: 1. Acetaminophen 650 mg every 4 hours as needed. 2. Milk of magnesia 30 mL daily as needed. 3. Metformin 500 mg twice daily. 4. Oxycodone 5 mg every three hours as needed. 5. Metamucil daily. 6. Ute-Colace 1 tablet twice daily as needed. 7. Eliquis 2.5 mg twice daily. 8. Calcium plus vitamin D daily. 9. Keflex 500 mg 3 times daily for the next week. 10. Vitamin B 12 1000 mcg p.o. daily. 11. Diltiazem CD 300 mg daily. 12. Hoyt 3 fish oil 1000 mg daily. 13. Prilosec 20 mg daily. 14. Pravastatin 40 mg at bedtime. 15. Co-Q 10 100 mg daily. PHYSICAL THERAPY INSTRUCTIONS: Physical therapy instructions will be provided by Dr. Smith. At present time, patient is nonweightbearing to the right lower extremity. FOLLOWUP: Patient has a follow up with me upon discharge from rehabilitation. Patient is to follow up with Dr. Smith as arranged. cc: Marty Rene MD
[2016-11-01 12:53] VITALS: BP 132/75
--- NOTE | 2016-11-04 09:29 | PROVIDER DOCUMENTATION ---
This chart was entered by Nila Reeves Scribe, acting as scribe for Leonard Russell MD. HPI-Musculoskeletal Pain/Inj <Bossman Mendes - Last Filed: 10/27/16 15:33> - GENERAL Source: patient, EMS - HX OF PRESENT ILLNESS-MUSKULOSKELTAL Quality of Pain: reports: burning Severity in ED: moderate Onset/Duration: just prior to arrival Timing: still present Modifying Factors: improves with: nothing Any recent injury?: Yes (fall) Locality of Occurance: Home Similar Symptoms Previously?: No Recently seen or treated by another doctor?: No - FALL INJURY Location of Pain/Injury: reports: lower extremity (R ankle) Pain Radiation: reports: no radiation Reason for Fall: reports: slipped Symptoms prior to fall:: denies: fever/chills/sweaty, chest pain, rapid heart rate, cough, diarrhea, vomiting, GI bleed, dizzy/lightheaded, headache, seizure Loss of Consciousness: no loss of consciousness Injury Associated Symptoms: reports: unable to bear weight, other (R ankle open fx). denies: arm pain, back/neck pain, chest pain, shortness of breath, snap/ crack/pop sensation, pain with inspiration - LOWER EXTREMITY PAIN/INJURY Lower Extremities Pain: ankle: right Context / Method of Injury: reports: fell Associated Symptoms: denies: loss of bladder control, loss of bowel control, lower back pain, muscle spasms, numbness in legs/feet, sensory/motor loss, tingling in legs/feet, weakness in legs/feet <Leonard Russell - Last Filed: 11/04/16 09:29> - GENERAL Chief Complaint: Fall Stated Complaint: OPEN FX OF LOWER LEG Time Seen by Provider: 10/27/16 12:30 - HX OF PRESENT ILLNESS-MUSKULOSKELTAL Nature of Presenting Problem: 86 y/o F presents to ED cc of fall and injury to R ankle. Pt states she was in her bathroom when she slipped and fell. Pt denies seeing a bone when she covered her leg herself. Pt is on Eliquis due to afib. She states when she fell she felt/heard a pop and saw bleeding. Pt was home alone and dragged herself to a phone to call daughter. When her daughter did not answer pt called 911. EMS states the fx was open and pt was bleeding. EMS wrapped and splint the R ankle. Pt is alert and oriented. Pt reports pain being 1/10. With a buring sensation. Pt has good pulses in R foot and still has movement in R toes. Pt denies head injury/ LOC. On exam blood is seen coming thru the marcos bandage. ( Nila Reeves) 86 y/o F presents to ED cc of fall and injury to R ankle. Pt states she was in her bathroom when she slipped and fell. Pt denies seeing a bone when she covered her leg herself. Pt is on Eliquis due to afib. She states when she fell she felt/heard a pop and saw bleeding. Pt was home alone and dragged herself to a phone to call daughter. When her daughter did not answer pt called 911. EMS states the fx was open and pt was bleeding. EMS wrapped and splint the R ankle. Pt is alert and oriented. Pt reports pain being 1/10. With a buring sensation. Pt has good pulses in R foot and still has movement in R toes. Pt denies head injury/ LOC. On exam blood is seen coming thru the marcos bandage. ( Leonard Russell) Review of Systems - Adult - REVIEW OF SYSTEMS - ADULT Constitutional: denies: chills, fever, weight gain, weight loss Eyes: denies: blurred vision, double vision, eye pain, redness Ears, Nose, Mouth & Throat: denies: ear pain, nose pain, loose teeth, throat pain Cardiovascular: denies: chest pain, irregular heart rate, orthopnea, palpitations Respiratory: denies: cough, shortness of breath, wheezing Gastrointestinal: denies: abdominal pain, diarrhea, nausea, vomiting Genitourinary: denies: dysuria, discharge, hematuria, hesitency, incontinence, urinary retention Musculoskeletal: reports: other (R ankle open fx). denies: bone pain, back pain , joint swelling, muscle aches <Leonard Russell - Last Filed: 11/04/16 09:29> Past History - Adult - PAST MEDICAL HISTORY-ADULT Review of Records: reports: Old Records Reviewed, Nursing Assessment Review Cardiovascular: reports: A-Fib Endocrine/Immune: reports: Diabetes - PRIOR SURGERIES/PROCEDURES Surgical/Procedure History: reports: hysterectomy, orthopedic (extremity) (knee) - IMMUNIZATION STATUS Childhood Immunizations: See Nurse Assessment Flu Vaccine: See Nurse Assessment - SOCIAL HISTORY Smoking: denies, non-smoker Substance Use: none/never, denies <Leonard Russell - Last Filed: 11/04/16 09:29> Physical Exam-Injury Related - Physical Exam-Injury Related Peripheral Pulses: radial (R): 2+, radial (L): 2+ Extremity: deformity, tenderness Integumentary: laceration (3 large lacerations to the lower leg c minimal venous bleeding), other <Bossman Mendes - Last Filed: 10/27/16 15:33> - Physical Exam-Injury Related Initial Vital Signs Reviewed: Yes General Appearance: appears well, alert, no apparent distress 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 Rene Time Discussed: 13:57 Consult Disposition: Admit #2 Consult: Dr. Smith Time Discussed: 14:12 Consult Disposition: Will see in ED <Bossman Mendes - Last Filed: 10/27/16 15:33> - PLAN OF CARE/RESULTS Result Diagrams: 11/01/16 05:07 10/29/16 05:55 - EKG 1 Time of EKG reading by physician:: 13:09 EKG Read and Signed by:: Leonard Russell EKG Interpretation (*Must complete 3 of following elements*): Abnormal Rate: 81 Rhythm: atrial fib Duncan: left (axis deviation) QRS: other (possible anterior infarct) [place] Interval: normal ST Wave: non-specific ST changes <Leonard Russell - Last Filed: 11/04/16 09:29> - PLAN OF CARE/RESULTS Progress/Plan/Lab Results: Orders Category Date Time Status Admit - [facility] Routine AdmDCTranf 10/27/16 14:47 Ordered Activity - Strict Bedrest ORDERED Care 10/27/16 14:47 Completed FSBS/Accucheck Result AC + HS Care 10/27/16 14:52 Active IV Insertion ONCE Care 10/27/16 14:47 Completed Intake and Output-Strict ORDERED Care 10/27/16 14:47 Active Notify MD if DIRECTED Care 10/27/16 14:49 Active Nursing- Assist w/ IS as order ORDERED Care 10/27/16 14:49 Active Vital Signs Order Q 4-HR ASSESS Care 10/27/16 14:47 Active Z-Document. for Tele Applied ORDERED Care 10/27/16 14:49 Completed Physician/Provider Consults Stat Cons 10/27/16 14:47 Ordered NPO Diet 10/27/16 14:33 Completed ANKLE COMPLETE RIGHT [RAD] Stat Exams 10/27/16 13:33 Completed CHEST-2 VIEWS [RAD] Stat Exams 10/27/16 12:35 Completed LOWER LEG-RIGHT [RAD] Stat Exams 10/27/16 12:40 Completed CBC WITH DIFF [HEME] Routine Lab 10/28/16 05:27 Completed CBC WITH DIFF [HEME] Stat Lab 10/27/16 12:44 Completed COMPREHENSIVE METABOLIC PANEL [CHEM] Routine Lab 10/28/16 05:27 Completed COMPREHENSIVE METABOLIC PANEL [CHEM] Stat Lab 10/27/16 12:44 Completed PROTIME WITH INR [COAG] Stat Lab 10/27/16 12:44 Completed PTT [COAG] Stat Lab 10/27/16 12:44 Completed TYPE & SCREEN [BBK] Stat Lab 10/27/16 12:44 Completed 0.9% Sodium Chloride Inj [Ns] 1,000 ml Med 10/27/16 12:40 Discontinued IV 75 mls/hr 0.9% Sodium Chloride Inj [Ns] 1,000 ml Med 10/27/16 14:47 Discontinued IV KVO Acetaminophen [Tylenol] Med 10/27/16 14:47 Discontinued 650 mg PO Q4H PRN PRN Cefazolin 1 gm/D5w [Kefzol 1 gm/D5w] Med 10/27/16 13:33 Discontinued 1 gm in 50 ml IV NOW Cyanocobalamin [Vitamin B-12] Med 10/28/16 09:00 Discontinued 1,000 microgm PO DAILY Diltiazem C.d. [Cardizem Cd] Med 10/28/16 09:00 Discontinued 300 mg PO DAILY Diphtheria/Tetanus Adult Med 10/27/16 13:33 Discontinued 0.5 ml IM .ONCE ONE Insulin Lispro [Humalog] Med 10/27/16 14:52 Discontinued See Protocol SUBQ NOW ONE Morphine Med 10/27/16 12:40 Discontinued 2 mg IV NOW ONE Morphine Med 10/27/16 14:57 Discontinued 2 mg IV Q2H PRN PRN Morphine Med 10/27/16 14:47 Discontinued 2 mg IV Q3H PRN PRN Omeprazole [Prilosec] Med 10/28/16 09:00 Discontinued 20 mg PO DAILY Ondansetron [Zofran] Med 10/27/16 12:40 Discontinued 4 mg IV NOW ONE Ondansetron [Zofran] Med 10/27/16 14:47 Discontinued 4 mg IV Q4H PRN PRN PRAVAstatin [Pravachol] Med 10/27/16 21:00 Discontinued 40 mg PO QHS Psyllium [Metamucil Powder Packet] Med 10/28/16 09:00 Discontinued 1 each PO DAILY Consent for Surgery Routine Oth 10/27/16 14:32 Ordered Incentive Spirometer Routine Oth 10/27/16 14:47 Completed O2 Per Protocol Routine Oth 10/27/16 14:47 Completed Telemetry [OM.EQ] Routine Oth 10/27/16 14:47 Active Transfer/Admit Order [TRANSFER] Routine Transfer 10/27/16 14:56 Completed PLAN: XRAY , PAIN MEDICATION , EKG , MONITOR PT (Nila Reeves) PLAN: XRAY , PAIN MEDICATION , EKG , MONITOR PT (Leonard Russell) Departure - Departure Date of Disposition Decision: 10/27/16 Time of Disposition Decision: 14:17 Certified Medical Emergency: Emergent - Critical Care Note This patient required my direct & personal management of CC.: No <Bossman Mendes - Last Filed: 10/27/16 15:33> - Departure Date of Disposition Decision: 10/27/16 Time of Disposition Decision: 14:20 Certified Medical Emergency: Emergent - Critical Care Note This patient required my direct & personal management of CC.: No <Leonard Russell - Last Filed: 11/04/16 09:29> - Departure DIAGNOSIS: Fracture of distal fibula Disposition: ADMITTED INPATIENT 09 Condition: Stable Attestation - Physician/ ALEXA Attestation Patient care was provided by Advanced Practice Provider:: Yes Advanced Practice Provider:: Bossman Mendes Advanced Practice Provider documentation review:: The Mid-level provider documentation, treatment plan and medical decision making was reviewed by the physician who agrees with all treatment and medical decision making by the MLP. <Bossman Mendes - Last Filed: 10/27/16 15:33> This chart was documented by the indicated scribe, (Nila Reeves Scribe) and accurately reflects the services I performed and decisions made by Drew hilliard Timothy P., MD, as attested by the provider's signature.
== END 2016-11-01 16:31 ==
LOC: ED 12:10 → 4N 15:24
PROVIDERS: ADMIT Internal Medicine; ATTEND Internal Medicine